=== PATIENT | female | born 1980 | race African-American/Black ===

== ENCOUNTER 2016-10-28 20:09 | Emergency (ER) | payer SELFPAY ==
[~2016-10-28] VITALS: Ht 177.8 cm; Wt 145.1 kg
[2016-10-28] MEDS ORDERED: CLON0.1T PO ×2 (20:34→21:48)
[2016-10-28] MEDS ORDERED: LISI40TA PO ×2 (20:35→21:48)
[2016-10-28] MEDS ORDERED: HYDR12.58 PO ×2 (20:35→21:48)
[2016-10-28 20:58] LABS: BILIRUBIN,URINE NEGATIVE (NEG); GLUCOSE,URINE NEGATIVE (NEG); NITRITE,URINE NEGATIVE (NEG); PH,URINE 5.5; PROTEIN,URINE >=300 mg/dL (NEG-TRACE); UROBILINOGEN,URINE 0.2 mg/dL (0.2 mg/dL)
[2016-10-28 21:00] VITALS: BP 198/97
[2016-10-28] MEDS ORDERED: hydroCHLOROthiazide 12.5 MG CAPSULE PO SCH (21:00)
[2016-10-28] MEDS ORDERED: LISINOPRIL 10 MG TABLET PO ONE (21:00)
[2016-10-28] MEDS ORDERED: cloNIDine HCL 0.1 MG TABLET PO ONE (21:00)
--- NOTE | 2016-10-28 21:00 | PHYS DOC ---
Past Medical History Past Medical History: Asthma, Hypertension, Other Additional Past Medical Histor: valve disease Past Surgical History: No Surgical History Alcohol Use: Occasionally Drug Use: None Adult General Chief Complaint Chief Complaint: ITCHING HPI HPI Patient is a 36 year old female with history of hypertension who presents today with itching to bilateral upper and lower extremities, with rashes that began approximately a week and a half ago after moving into a new place. Patient is also complaining of intermittent headaches due to high blood pressure. She states she is supposed to be on multiple medications. She states she moved here and has not had time to establish care with a primary doctor. She states she has been out of her medications for 1-1/2 weeks. Patient denies any chest pain or shortness of breath. She is also complaining of increased bilateral lower extremity edema. Patient states this is because she is not taking most of her BP medications. Review of Systems Review of Systems Constitutional: Denies fever or chills [] Eyes: Denies change in visual acuity, redness, or eye pain [] HENT: Denies nasal congestion or sore throat [] Respiratory: Denies cough or shortness of breath [] Cardiovascular: No additional information not addressed in HPI [] GI: Denies abdominal pain, nausea, vomiting, bloody stools or diarrhea [] : Denies dysuria or hematuria [] Musculoskeletal: Lower extremity swelling Integument: rash and itching Neurologic: headache Endocrine: Denies polyuria or polydipsia [] Current Medications Current Medications Current Medications Medications (Trade) Dose Ordered Sig/[facility] Start Time Stop Time Status Last Admin Dose Admin Clonidine HCl (Catapres) 0.3 mg 1X ONCE 10/28/16 21:00 10/28/16 21:01 DC 10/28/16 21:00 0.3 MG Hydrochlorothiazide (Microzide) 12.5 mg DAILY 10/28/16 21:00 Lisinopril (Prinivil) 40 mg 1X ONCE 10/28/16 21:00 10/28/16 21:01 DC 10/28/16 21:00 40 MG Allergies Allergies Allergies Coded Allergies Type Severity Reaction Last Updated Verified No Known Drug Allergies 07/03/13 No Physical Exam Physical Exam Constitutional: Well developed, well nourished, no acute distress, non-toxic appearance. [] HENT: Normocephalic, atraumatic, bilateral external ears normal, oropharynx moist, no oral exudates, nose normal. [] Eyes: PERRLA, EOMI, conjunctiva normal, no discharge. [] Neck: Normal range of motion, no tenderness, supple, no stridor. [] Cardiovascular:Heart rate regular rhythm, no murmur [] Lungs & Thorax: Bilateral breath sounds clear to auscultation [] Abdomen: Bowel sounds normal, soft, no tenderness, no masses, no pulsatile masses. [] Skin: Small amount of macular rash scattered throughout patient's upper lower extremity and chest. Back: No tenderness, no CVA tenderness. [] Extremities: No tenderness, no cyanosis, no clubbing, ROM intact, no edema. [] Neurologic: Alert and oriented X 3, normal motor function, normal sensory function, no focal deficits noted. Cranial nerves II through XII intact Psychologic: Affect normal, judgement normal, mood normal. [] Current Patient Data Vital Signs Vital Signs Date Time Temp Pulse Resp B/P (MAP) Pulse Ox O2 Delivery O2 Flow Rate FiO2 10/28/16 21:00 87 198/97 10/28/16 20:26 97.8 18 98 Room Air 97.8 Lab Values Laboratory Tests Test 10/28/16 20:50 10/28/16 20:54 Urine Collection Type Unknown Urine Color Yellow Urine Clarity Clear Urine pH 5.5 Urine Specific [place] >=1.030 Urine Protein >=300 mg/dL (NEG-TRACE) Urine Glucose (UA) Negative mg/dL (NEG) Urine Ketones (Stick) Negative mg/dL (NEG) Urine Blood Negative (NEG) Urine Nitrite Negative (NEG) Urine Bilirubin Negative (NEG) Urine Urobilinogen Dipstick 0.2 mg/dL (0.2 mg/dL) Urine Leukocyte Esterase Negative (NEG) Urine RBC 6-10 /HPF (0-2) Urine WBC 11-20 /HPF (0-4) Urine Squamous Epithelial Cells Occ /LPF Urine Bacteria Many /HPF (0-FEW) Urine Mucus Marked /LPF POC Hemoglobin 15.0 g/dL (12-15) POC Hematocrit 44 % (36-40) H POC Sodium 142 mmol/L (135-145) POC Potassium 3.3 mmol/L (3.5-5.0) L POC Chloride 103 mmol/L (98-110) POC Total CO2 25 mmol/L (23-32) Anion Gap 19 mmol/L (6-14) H POC Blood Urea Nitrogen 14 mg/dL (8-26) POC Creatinine 0.9 mg/dL (0.5-1.4) Glucose Level 136 mg/dL (70-99) H POC Ionized Calcium (Michelle) 1.07 mmol/L (1.13-1.32) L Laboratory Tests 10/28/16 20:54 EKG EKG [] Radiology/Procedures Radiology/Procedures [] Course & Med Decision Making Course & Med Decision Making Pertinent Labs and Imaging studies reviewed. (See chart for details) This is a 36-year-old female patient who presents to the ED today with itching after moving to a new place. I highly suspect patient has bed bugs. Recommended cleaning everything at the new place. We'll discharge her with triamcinolone, Zyrtec and Benadryl. Her blood pressure was 234/114 with complaints of headache for 1-1/2 weeks and increased bilateral lower extremity swelling. Patient states she has history of hypertension, she is supposed to be on multiple medications including clonidine lisinopril and HCTZ which she has not taken for 1-1/2 weeks. She states she ran out of the medications after moving to [place] 1 1/2 weeks ago. Patient was given clonidine lisinopril and HCTZ in the ED. Blood pressure 188/115 prior to discharge. I talked to patient about her blood pressure. We agreed she is going to follow-up with a primary care doctor on Monday next week. She does not have a headache right now. She states the headaches were intermittent they don't occur every time. Patient is also overweight. Encouraged weight loss. CT of the head was negative for any acute findings Dragon Disclaimer Dragon Disclaimer This electronic medical record was generated, in whole or in part, using a voice recognition dictation system. Departure Departure Impression: Primary Impression: Insect bites Additional Impression: Accelerated hypertension Disposition: HOME, SELF-CARE Condition: STABLE Referrals: NO PCP (PCP) Please establish care with a doctor from the list provided and follow-up as soon as possible Patient Instructions: Hypertension, Insect Bite Additional Instructions: You were seen with a rash from possible insect bites. We put you on medications to help with the rash. We also put you on medication for your blood pressure and rash. Establish care with a primary care doctor. Follow-up as soon as you can. Come back to the ED at any point symptoms worsen. Scripts Hydrochlorothiazide (HYDROCHLOROTHIAZIDE TABLET) 12.5 Mg Tablet 1 TAB PO DAILY, #90 TAB 0 Refills Prov: SHY SHIN APRN 10/28/16 Clonidine Hcl (CLONIDINE HCL) 0.1 Mg Tablet 1 TAB PO QHS, #90 TAB 2 Refills Prov: SHY SHIN APRN 10/28/16 Lisinopril (LISINOPRIL) 40 Mg Tablet 1 TAB PO DAILY, #90 TAB 0 Refills Prov: SHY SHIN APRN 10/28/16 Prednisone (PREDNISONE) 50 Mg Tablet 1 TAB PO DAILY, #5 TAB Prov: SHY SHIN APRN 10/28/16 Cetirizine Hcl (ZYRTEC) 10 Mg Tablet 1 TAB PO DAILY, #30 TAB 3 Refills Prov: SHY SHIN APRN 10/28/16 Triamcinolone Acetonide (TRIAMCINOLONE ACETONIDE 0.1% OINT) 15 Gm Oint...g. 1 CHELITA TP TID Y for RASH, #1 TUBE 2 Refills Prov: SHY SHIN APRN 10/28/16 Problem Qualifiers Primary Impression: Insect bites Encounter type: initial encounter Qualified Codes: W57.XXXA - Bitten or stung by nonvenomous insect and other nonvenomous arthropods, initial encounter SHY SHIN APRN Oct 28, 2016 21:00
[2016-10-28 21:05] LABS: POTASSIUM ISTAT 3.3 mmol/L (3.5-5.0)
--- NOTE | 2016-10-28 21:08 | RAD ---
EXAM: Head CT without contrast. HISTORY: Lightheadedness. Headache. TECHNIQUE: Computed tomographic images of the head were obtained without contrast. *One or more of the following individualized dose reduction techniques were utilized for this examination: 1. Automated exposure control. 2. Adjustment of the mA and/or kV according to patient size. 3. Use of iterative reconstruction technique. COMPARISON: None. FINDINGS: There is no acute or subacute extra-axial or intraparenchymal hemorrhage. There is no mass effect or midline shift. There is no hydrocephalus. The toure-white matter differentiation pattern is intact. There are tiny maxillary sinus mucous retention cysts. The mastoid air cells are clear. No calvarial lesion is seen. IMPRESSION: No acute intracranial findings. Electronically signed by: Karen Andrews MD (10/28/2016 9:05 PM)
[2016-10-28 21:11] LABS: BACTERIA,URINE MANY /HPF (0-FEW); SQUAMOUS EPITHELIAL CELL,UR OCC /LPF
[2016-10-28] MEDS ORDERED: CETI10TA22 PO (21:48)
[2016-10-28] MEDS ORDERED: TRIA15OI TP (21:48)
[2016-10-28] MEDS ORDERED: PRED50TA PO (21:48)
== END 2016-10-28 21:54 | disposition home or self-care (01) ==
LOC: ER 20:09
DX: S40.862A Insect bite (nonvenomous) of left upper arm, initial encounter (principal); S40.861A Insect bite (nonvenomous) of right upper arm, initial encounter; S80.862A Insect bite (nonvenomous), left lower leg, initial encounter; S80.861A Insect bite (nonvenomous), right lower leg, initial encounter; J45.909 Unspecified asthma, uncomplicated; R51 Headache; I10 Essential (primary) hypertension; W57.XXXA Bitten or stung by nonvenomous insect and other nonvenomous arthropods, initial encounter; Y93.89 Activity, other specified; Y99.8 Other external cause status; Y92.89 Other specified places as the place of occurrence of the external cause
CPT/HCPCS: 36415; 70450; 80047; 81001; 99285-25

== ENCOUNTER 2017-06-03 16:07 | Emergency (ER) | payer SELFPAY ==
[2017-06-03 16:39] LABS: URINE HCG POC HCG NEGATIVE (Negative)
[2017-06-03 17:05] LABS: INFLUENZA A PATIENT NEGATIVE (NEGATIVE); INFLUENZA B PATIENT NEGATIVE (NEGATIVE); OBC FLU VALID
[2017-06-03] MEDS: amLODIPine BESYLATE 5 MG TABLET PO ×2 (17:42)
[2017-06-03] MEDS: LISINOPRIL 10 MG TABLET PO ×2 (17:44)
== END 2017-06-03 17:50 | disposition home or self-care (01) ==
LOC: ER 16:07
DX: J06.9 Acute upper respiratory infection, unspecified (principal); J45.909 Unspecified asthma, uncomplicated; I10 Essential (primary) hypertension; Z76.0 Encounter for issue of repeat prescription
CPT/HCPCS: 71046; 81025; 87804; 87804-59; 99285-25

== ENCOUNTER 2017-07-13 23:05 | Emergency (ER) | payer SELFPAY | END 2017-07-14 00:46 | disposition home or self-care (01) | LOC: ER 23:05 | DX: T81.4XXA Infection following a procedure, initial encounter (principal); I10 Essential (primary) hypertension; J45.909 Unspecified asthma, uncomplicated; Y83.8 Other surgical procedures as the cause of abnormal reaction of the patient, or of later complication, without mention of misadventure at the time of the procedure; Y92.89 Other specified places as the place of occurrence of the external cause | CPT/HCPCS: 99283 ==